=== PATIENT | female | born 1960 | race Native Hawaiian/Other Pacific Islander ===

== ENCOUNTER 2017-12-15 15:30 | Emergency (ER) | payer OTHER ==
[2017-12-15 15:40] VITALS: BP 144/78; PULSE 80; RESP 18; TEMP 98.2; O2SAT 98
[2017-12-15] MEDS ORDERED: Oxycodone/Acetaminophen 5/325 mg Tab PO STA (15:48)
[2017-12-15] MEDS ORDERED: Lidocaine 1% Inj (20ml) IJ ONE (15:48)
[2017-12-15] MEDS ORDERED: Oxycodone/Acetaminophen 5/325 mg Tab ONE (16:00)
[2017-12-15] MEDS ORDERED: Lidocaine 1% Inj (20ml) ONE (16:01)
--- NOTE | 2017-12-15 16:02 | ED PDOC ---
HPI: General Adult Time Seen by Provider: 12/15/17 15:43 Chief Complaint (Nursing): Finger,Hand,&Wrist History Per: Patient Additional Complaint(s): Pt. states earlier today a door was accidentally closed on her R middle finger causing a laceration. Denies numbness, tingling, other injury. Past Medical History Reviewed: Historical Data, Nursing Documentation, Vital Signs Vital Signs: Last Vital Signs Temp 98.2 F 12/15/17 15:37 Pulse 80 12/15/17 15:37 Resp 18 12/15/17 15:37 BP 144/78 12/15/17 15:37 Pulse Ox 98 12/15/17 17:41 - Family History Family History: States: No Known Family Hx - Home Medications Home Medications: Ambulatory Orders Medication Instructions Recorded Acetaminophen with Codeine 1 - 2 each PO Q6 PRN #15 tablet 12/15/17 [Tylenol with Codeine #3 Tablet] Amoxicillin/Clavulanate [Augmentin 1 tab PO Q8 #30 tab 12/15/17 500 MG-125 MG] - Allergies Allergies/Adverse Reactions: Allergies Allergy/AdvReac Type Severity Reaction Status Date / Time No Known Allergies Allergy Verified 12/15/17 15:37 Review of Systems ROS Statement: Except As Marked, All Systems Reviewed And Found Negative Physical Exam - Physical Exam Appears: Positive for: Well, Non-toxic, No Acute Distress Skin: Positive for: Normal Color, Warm. Negative for: Rash Pulses-Radial (R): 2+ Extremity: Positive for: Other (R middle finger: 2cm superficial C-shaped on distal phalanx; 50% subungual hematoma) Neurologic/Psych: Positive for: Alert, Oriented - ECG O2 Sat by Pulse Oximetry: 98 - Radiology X-Ray: Interpreted by Me (R 3rd digit) - Progress ED Course And Treament: Percocet 1 tab PO, R middle finger x-ray ordered. Procedures - Time-Out Type of Procedure: Laceration repair Site of Procedure: R 3rd digit Correct Patient (with visual ID + MR# on ID Band): Yes Correct Procedure: Yes Correct Site Marked: Yes PA/Tech: Melva - Laceration/Wound Repair Laceration repair Wound Length (cm): 2.5 Wound's Depth, Shape: superficial, flap Wound Explored: clean Irrigated w/ Saline (ccs): 1,000 Betadine Prep?: Yes Anesthesia: 1% Lidocaine Volume Anesthetic (ccs): 4 Wound Debrided: minimal Wound Repaired With: Sutures Suture Size/Type: 5:0, proline Number of Sutures: 13 Layer Closure?: No Wound Complexity: Complex Splint Applied?: Yes (Aluminum finger splint) - Nail Trepanation Nail Trepanation Location: R 3rd digit Method of Drainage: nail cauterized Sterile Dressing Applied: Yes Finger Splint: Yes Disposition - Clinical Impression Clinical Impression: Finger laceration, Finger fracture, Subungual hematoma - Patient ED Disposition Is Patient to be Admitted: No - Disposition Referrals: [facility] [Outside] [facility] [Outside] Kelly Avina MD [Staff Provider] - Disposition: Routine/Home Disposition Time: 17:38 Condition: STABLE Additional Instructions: Suture removal in 7-10 days. Prescriptions: Acetaminophen with Codeine [Tylenol with Codeine #3 Tablet] 1 - 2 each PO Q6 PRN #15 tablet PRN Reason: Pain Amoxicillin/Clavulanate [Augmentin 500 MG-125 MG] 1 tab PO Q8 #30 tab Instructions: Finger Fracture (ED), Finger Laceration (ED) Forms: [facility] ([place]) Print Language: KAZAKH
--- NOTE | 2017-12-15 16:19 | RAD ---
PROCEDURE: Right middle finger radiographs. HISTORY: Trauma COMPARISON: None. TECHNIQUE: AP radiograph of the right hand, as well as spot oblique and lateral images of right middle finger were obtained. FINDINGS: RIGHT MIDDLE FINGER: There is an acute comminuted displaced fracture in the tuft of the distal phalanx of the 3rd finger with overlying soft tissue swelling and irregularity. Remainder of the right hand (as seen on the AP view) grossly unremarkable. JOINTS: Normal. SOFT TISSUES: No radiopaque foreign body. OTHER FINDINGS: None. IMPRESSION: Acute comminuted mildly displaced fracture in the tuft of the distal phalanx of the 3rd finger with overlying soft tissue swelling and irregularity without radiopaque foreign body.
[2017-12-15] MEDS ORDERED: Povidone Iodine Topical 10% Sol ONE (16:23)
== END 2017-12-15 18:35 | disposition home or self-care (01) ==
LOC: H.ER 15:30
DX: S61.212A Laceration without foreign body of right middle finger without damage to nail, initial encounter (principal); W22.8XXA Striking against or struck by other objects, initial encounter; Y92.89 Other specified places as the place of occurrence of the external cause